=== PATIENT | male | born 1970 | race Caucasian/White ===

== ENCOUNTER 2016-12-27 16:53 | Emergency (ER) | payer OTHER ==
[~2016-12-27] VITALS: Ht 180.3 cm; Wt 111.6 kg
[~2016-12-27 16:53] MED LIST: CELEXA10 MG PO; FLEXERIL10 MG PO; KLONOPIN1 MG PO; PERCOCET 5/31 TABLET PO; PREDNISONE10 MG PO; PRILOSEC20 MG PO
[2016-12-27] MEDS ORDERED: LIDODERM 5% P1 PATCH TD (20:28)
[2016-12-27 20:42] VITALS: BP 163/107
== END 2016-12-27 20:47 | disposition home or self-care (01) ==
LOC: EME 16:53
DX: M54.12 Radiculopathy, cervical region (principal); M62.838 Other muscle spasm; Z87.891 Personal history of nicotine dependence
CPT/HCPCS: 72040; 99281; 99285